=== PATIENT | male | born 1940 | race Caucasian/White ===

== ENCOUNTER 2019-02-25 22:14 | Emergency (ER) | payer MEDICARE, OTHER ==
[2019-02-25 22:24] VITALS: RESP 18
--- NOTE | 2019-02-25 23:17 | CT ---
EXAMINATION TYPE: CT brain cspine wo con DATE OF EXAM: 02/25/2019 COMPARISON: Cervical spine CT scan 05/22/2013 HISTORY: Fall, pain CT DLP: 1454.8 mGycm Automated exposure control for dose reduction was used. There is cerebral cortical atrophy. There is no mass effect nor midline shift. There is no sign of in tracranial hemorrhage. Calvarium is intact. There is ethmoid sinus mucosal thickening. There is straightening of the cervical spine. There is old anterior fusion surgery at C3-4. There is mild multilevel hypertrophic facet arthropathy. There is moderate narrowing at C5-6 and C6-7 disc spa sukhdeep with spurring of the endplates. Skull base is intact. IMPRESSION: Cerebral atrophy. No acute intracranial abnormality. Spondylotic changes in the cervical spine. Previous surgery. No fracture. There is improvement in spi nal stenosis at C3-C4 compared to old exam.
--- NOTE | 2019-02-25 23:49 | ED ---
Fall HPI - General Chief Complaint: Fall Stated Complaint: Fall Time Seen by Provider: 02/25/19 22:24 Source: patient, EMS Mode of arrival: EMS - History of Present Illness Initial Comments: Michel is a 78-year-old gentleman with past medical history documented below presents the ER today for evaluation of right-sided head and neck pain after an apparently unwitnessed fall from an electric scooter or wheelchair. Patient states that he was shopping when he fell out of the electric wheelchair he fell to the right striking the right side of his head doesn't believe he had any loss of consciousness. - Related Data Allergies Allergy/AdvReac Type Severity Reaction Status Date / Time No Known Allergies Allergy Verified 02/25/19 22:24 Review of Systems ROS Statement: Those systems with pertinent positive or pertinent negative responses have been documented in the HPI. ROS Other: All systems not noted in ROS Statement are negative. Past Medical History Past Medical History: CVA/TIA History of Any Multi-Drug Resistant Organisms: None Reported Past Surgical History: No Surgical Hx Reported Past Psychological History: No Psychological Hx Reported Smoking Status: Current every day smoker Past Alcohol Use History: None Reported Past Drug Use History: None Reported General Exam - General Exam Comments Initial Comments: Physical Exam GENERAL: Patient is well-developed and well-nourished. Unkempt appearance Stronger odor of tobacco smoke HENT: Normocephalic, Atraumatic - no obvious trauma TMs normal bilaterally no hemotympanum No matthew signs, no raccoon eyes EYES: PERRL, EOMI PULMONARY: Unlabored respirations. No audible rales rhonchi or wheezing was noted. CARDIOVASCULAR: There is a regular rate and rhythm without any murmurs gallops or rubs. ABDOMEN: Soft and nontender with normal bowel sounds. SKIN: Skin is clear with no lesions or rashes and otherwise unremarkable. : Deferred NEUROLOGIC: Patient is alert and oriented x3. Moving all extremities spontaneously MUSCULOSKELETAL: Normal extremities with adequate strength and full range of motion. No lower extremity swelling or edema. No calf tenderness. No midline cervical spine tenderness PSYCHIATRIC: Normal psychiatric evaluation. Limitations: no limitations Course Vital Signs 02/25/19 02/26/19 22:21 00:00 Temperature 97.8 F 98.0 F Pulse Rate 93 79 Respiratory 18 18 Rate Blood Pressure 127/72 135/79 O2 Sat by Pulse 97 94 L Oximetry Medical Decision Making - Medical Decision Making The patient was seen and evaluated upon arrival from emergency department. Patient had a fall from sitting position on an electric wheelchair landing on a hard floor no loss of consciousness. Complains of pain in the right side of his head. Patient has a history of stroke in the past with right-sided deficits. Not acutely worsen after the fall. Physical exam is unremarkable there is no obvious traumatic injury. Computed tomography scan of the brain and C-spine were obtained and resulted with no acute injuries in fact there is improvement in the final stenosis noted on previous CT scans. These results were discussed with patient, cervical collar was removed. Patient reported feeling more comfortable once cervical collar was removed. Patient comfortable with plan for discharge home and continue outpatient follow-up with his primary care physician. Disposition Clinical Impression: Fall Disposition: HOME SELF-CARE Condition: Stable Instructions (If sedation given, give patient instructions): Fall Prevention (ED) Is patient prescribed a controlled substance at d/c from ED?: No Referrals: Alvaro Donnelly MD [Primary Care Provider] - 1-2 days
[2019-02-26 00:04] VITALS: BP 135/79; PULSE 79; TEMP 98
== END 2019-02-26 00:04 | disposition home or self-care (01) ==
LOC: EC 22:14
DX: S09.90XA Unspecified injury of head, initial encounter (principal); M54.2 Cervicalgia; M48.02 Spinal stenosis, cervical region; F17.200 Nicotine dependence, unspecified, uncomplicated; Z86.73 Personal history of transient ischemic attack (TIA), and cerebral infarction without residual deficits; V00.811A Fall from moving wheelchair (powered), initial encounter; Y93.89 Activity, other specified; Y92.512 Supermarket, store or market as the place of occurrence of the external cause
CPT/HCPCS: 70450; 72125; 99284

== ENCOUNTER 2022-12-19 07:11 | Inpatient (IN) | payer MEDICARE, OTHER ==
[2022-12-19] MEDS ORDERED: SODIUM CHLORIDE 0.9% 500 ML 500 ML IV STA (07:41)
[2022-12-19] MEDS ORDERED: IPRATROPIUM 0.5 MG/2.5 ML NEBU INHALATION STA (07:43)
[2022-12-19] MEDS ORDERED: ALBUTEROL NEBULIZED 2.5 MG/3 ML INHALATION STA (07:43)
[2022-12-19] MEDS ORDERED: methylPREDNISolone SOD SUCCI 125 MG/2 ML VIAL IV STA (07:43)
--- NOTE | 2022-12-19 07:46 | ED ---
General Adult HPI - General Chief complaint: Shortness of Breath Stated complaint: weakness Time Seen by Provider: 12/19/22 07:25 Source: patient, EMS, RN notes reviewed, old records reviewed Mode of arrival: EMS Limitations: no limitations - History of Present Illness Initial comments: This is an 82-year-old male who presents emergency Department baseline of alert and oriented times one. Patient comes in because they found him the oxygenating down into the 30s according to the staff at the [facility]. Patient is unable to give any history. They placed oxygen on the patient he was brought up into the 80s but did not improve from there. I have no other history at this time because no caregiver or family came with him. - Related Data Home Medications Medication Instructions Recorded Confirmed Acetaminophen Tab [Tylenol] 650 mg PO Q6H PRN 12/19/22 12/19/22 Atorvastatin [Lipitor] 40 mg PO HS 12/19/22 12/19/22 Finasteride [Proscar] 5 mg PO DAILY 12/19/22 12/19/22 Ipratropium-Albuterol Nebulize 3 ml INHALATION RT-Q6H PRN 12/19/22 12/19/22 [Duoneb 0.5 mg-3 mg/3 ml Soln] Metoprolol Tartrate [Lopressor] 25 mg PO BID 12/19/22 12/19/22 Multivitamins, Thera [Multivitamin 1 tab PO DAILY 12/19/22 12/19/22 (formulary)] amLODIPine [Norvasc] 5 mg PO DAILY 12/19/22 12/19/22 lisinopriL [Prinivil] 10 mg PO DAILY 12/19/22 12/19/22 Allergies Allergy/AdvReac Type Severity Reaction Status Date / Time No Known Allergies Allergy Verified 02/25/19 22:24 Review of Systems ROS Statement: Those systems with pertinent positive or pertinent negative responses have been documented in the HPI. ROS Other: All systems not noted in ROS Statement are negative. Past Medical History Past Medical History: Atrial Fibrillation, COPD, CVA/TIA, Hyperlipidemia, Hypertension Additional Past Medical History / Comment(s): CKD History of Any Multi-Drug Resistant Organisms: None Reported Past Surgical History: No Surgical Hx Reported Past Psychological History: No Psychological Hx Reported Smoking Status: Unknown if ever smoked Past Alcohol Use History: None Reported Past Drug Use History: None Reported General Exam - General Exam Comments Initial Comments: GENERAL: Patient is well-developed and well-nourished. Patient is nontoxic and well- hydrated and is in moderate distress. ENT: Neck is soft and supple. No significant lymphadenopathy is noted. Oropharynx is clear. Moist mucous membranes. Neck has full range of motion without eliciting any pain. EYES: The sclera were anicteric and conjunctiva were pink and moist. Extraocular movements were intact and pupils were equal round and reactive to light. Eyelids were unremarkable. PULMONARY: Diminished breath sounds throughout and patient is very tachypneic CARDIOVASCULAR: There is a regular rate and rhythm without any murmurs gallops or rubs. ABDOMEN: Soft and nontender with normal bowel sounds. SKIN: Skin is clear with no lesions or rashes and otherwise unremarkable. NEUROLOGIC: Patient is alert and oriented 1. Cranial nerves II through XII are grossly intact. Motor and sensory are also intact. Normal speech, volume and content. Symmetrical smile. MUSCULOSKELETAL: Normal extremities with adequate strength and full range of motion. No lower extremity swelling or edema. No calf tenderness. LYMPHATICS: No significant lymphadenopathy is noted PSYCHIATRIC: Normal psychiatric evaluation. Limitations: no limitations Course Vital Signs 12/19/22 12/19/22 12/19/22 07:18 07:26 07:47 Temperature 97.0 F L Pulse Rate 108 H Respiratory 30 H 30 H Rate Blood Pressure 123/76 O2 Sat by Pulse 77 L 88 L Oximetry Fraction of 100 Inspired Oxygen (FIO2) 12/19/22 12/19/22 12/19/22 07:59 08:15 08:16 Temperature Pulse Rate 138 H 129 H 125 H Respiratory 41 H 22 Rate Blood Pressure O2 Sat by Pulse 96 Oximetry Fraction of Inspired Oxygen (FIO2) 12/19/22 12/19/22 12/19/22 09:57 10:54 11:11 Temperature Pulse Rate 116 H 121 H Respiratory 24 30 H Rate Blood Pressure 105/71 117/71 O2 Sat by Pulse 93 L 92 L Oximetry Fraction of 100 Inspired Oxygen (FIO2) 12/19/22 12/19/22 12/19/22 11:47 12:52 13:18 Temperature 100.5 F H Pulse Rate 149 H 113 H 98 Respiratory 20 30 H 30 H Rate Blood Pressure 110/71 93/56 92/61 O2 Sat by Pulse 96 95 93 L Oximetry Fraction of Inspired Oxygen (FIO2) Procedures - Chest Tube Insertion Consent Obtained: emergent situation Side of Procedure: right Indication: Pneumothorax Placed on monitor/pulse oximetry: Yes Site Prep: Chloroprep Local Anesthesia: Lidocaine 1% Insertion Site: 5th Intercostal Space, Midaxillary Scalpel: #10 Open into Pleural Space Using: Trocar Tube Size (English): Other (24) Returns: Air Sutured in Place: Yes Type of Suture: Nylon Dressing Applied: Petroleum Gauze Attached to Suction: Yes Type of Suction: Pleuravac Patient Tolerated Procedure: well Complications: Pain Medical Decision Making - Medical Decision Making EKG shows sinus tachycardia at 108 bpm OK interval is 211 QRSs 106 QT interval 335 QTC is 398. Patient's EKG shows no ST segment elevation or depression. Patient's heart rate accelerated so repeat EKG was done. I interpreted the EKG. EKG shows a sinus rhythm at 151 bpm OK interval 240 QRS is under 5 Q-T intervals 321 QTC is 427 per patient's EKG shows question for atrial flutter. Was pt. sent in by a medical professional or institution ([facility]all[facility], [employer], urgent care, hospital, or [facility]...) When possible be specific @ -Patient was sent in by the [facility] Did you speak to anyone other than the patient for history (EMS, parent, family, police, friend...)? What history was obtained from this source @ -No Did you review nursing and triage notes (agree or disagree)? Why? @ -I reviewed and agree with nursing and triage notes Were old charts reviewed (outside hosp., previous admission, EMS record, old EKG, old radiological studies, urgent care reports/EKG's, [facility] records)? Report findings @ -I reviewed prior charts prior laboratory or radiological studies Differential Diagnosis (chest pain, altered mental status, abdominal pain women, abdominal pain men, vaginal bleeding, weakness, fever, dyspnea, syncope, headache, dizziness, GI bleed, back pain, seizure, CVA, palpatations, mental health, musculoskeletal)? @ -Differential Dyspnea: Coronary syndrome, arrhythmia, tamponade, asthma, COPD, pulmonary embolism, pneumonia, pneumothorax, pulmonary effusion, anaphylaxis, diabetic ketoacidosis, flailed chest, pulmonary contusion, diaphragmatic rupture, anemia, neuromuscular, this is not meant to be an all-inclusive list. EKG interpreted by me (3pts min.). @ -As above X-rays interpreted by me (1pt min.). @ -Chest x-ray shows a right-sided pneumonia. Repeat x-ray of the chest shows pneumothorax. A repeat after the chest tube shows better inflation of the lung. CT interpreted by me (1pt min.). @ -Computed tomography scan shows a right-sided pneumothorax. Also showed a PE on the right U/S interpreted by me (1pt. min.). @ -None done What testing was considered but not performed or refused? (CT, X-rays, U/S, labs)? Why? @ -None What meds were considered but not given or refused? Why? @ -None Did you discuss the management of the patient with other professionals (professionals i.e. , PA, [employer], lab, RT, psych nurse, social work manager, visual designer, teacher, licensed loan officer, case filler)? Give summary @ -I spoke with Dr. Donnelly he agreed to admit the patient. I spoke with Dr. Segovia and he accepted the patient to the ICU and came to the emergency department Was smoking cessation discussed for >3mins.? @ -No Was critical care preformed (if so, how long)? @ -35 minutes Were there social determinants of health that impacted care today? How? (Homelessness, low income, unemployed, alcoholism, drug addiction, transportation, low edu. Level, literacy, decrease access to med. care, penitentiary, rehab)? @ -No Was there de-escalation of care discussed even if they declined (Discuss DNR or withdrawal of care, Hospice)? DNR status @ -No What co-morbidities impacted this encounter? (DM, HTN, Smoking, COPD, CAD, Cancer, CVA, ARF, Chemo, Hep., AIDS, mental health diagnosis, sleep apnea, morbid obesity)? @ -COPD, dementia Was patient admitted / discharged? Hospital course, mention meds given and route, prescriptions, significant lab abnormalities, going to OR and other pertinent info. @ -Patient was seen initially and it was noted that he had pneumonia on the x- ray patient was started on antibiotics. Shortly thereafter he started decompensated little heart rate went up so CT was done and it showed a pneumothorax. Chest tube was placed a repeat chest x-ray showed good placement of the tube and partial reinflation of the lung. I spoke with Dr. Cox who accepted the patient and I spoke with Dr. Segovia also accepted the patient to the ICU. I wrote admitting orders. CT also showed a PE so patient will be placed on heparin Undiagnosed new problem with uncertain prognosis? @ -No Drug Therapy requiring intensive monitoring for toxicity (Heparin, Nitro, Insulin, Cardizem)? @ -No Were any procedures done? @ -No Diagnosis/symptom? @ -Pneumonia Acute, or Chronic, or Acute on Chronic? @ -Acute Uncomplicated (without systemic symptoms) or Complicated (systemic symptoms)? @ -Complicated Side effects of treatment? @ -No Exacerbation, Progression, or Severe Exacerbation? @ -No Poses a threat to life or bodily function? How? (Chest pain, [place], [place], pneumonia, PE, COPD, DKA, ARF, appy, cholecystitis, CVA, Diverticulitis, Homicidal, Suicidal, threat to staff... and all critical care pts) @ -Chest is completely to sepsis and end organ dysfunction Diagnosis/symptom? @ -Pneumothorax Acute, or Chronic, or Acute on Chronic? @ -Acute Uncomplicated (without systemic symptoms) or Complicated (systemic symptoms)? @ -Complicated Side effects of treatment? @ -none Exacerbation, Progression, or Severe Exacerbation] @ -no Poses a threat to life or bodily function? @ -no Diagnosis/symptom? @ -Pulmonary embolism Acute, or Chronic, or Acute on Chronic? @ -Acute Uncomplicated (without systemic symptoms) or Complicated (systemic symptoms)? @ -Complicated Side effects of treatment? @ -none Exacerbation, Progression, or Severe Exacerbation] @ -no Poses a threat to life or bodily function? @ -Yes this could lead to severe hypoxia and - Lab Data Result diagrams: 12/19/22 07:54 12/19/22 10:30 Lab Results 12/19/22 12/19/22 12/19/22 Range/Units 07:54 07:54 07:54 WBC 20.1 H (3.8-10.6) k/uL RBC 5.16 (4.30-5.90) m/uL Hgb 15.5 (13.0-17.5) gm/dL Hct 47.9 (39.0-53.0) % MCV 92.8 (80.0-100.0) fL MCH 30.0 (25.0-35.0) pg MCHC 32.3 (31.0-37.0) g/dL RDW 13.7 (11.5-15.5) % Plt Count 218 (150-450) k/uL MPV 9.9 Neutrophils % 90 % Lymphocytes % 5 % Monocytes % 4 % Eosinophils % 0 % Basophils % 0 % Neutrophils # 18.2 H (1.3-7.7) k/uL Lymphocytes # 0.9 L (1.0-4.8) k/uL Monocytes # 0.8 (0-1.0) k/uL Eosinophils # 0.1 (0-0.7) k/uL Basophils # 0.1 (0-0.2) k/uL Hypochromasia Slight PT 11.6 (10.0-12.5) sec INR 1.1 (<1.2) APTT 23.8 (22.0-30.0) sec D-Dimer 1.29 H (<0.60) mg/L FEU Sample Site ABG pH (7.35-7.45) ABG pCO2 (35-45) mmHg ABG pO2 (83-108) mmHg ABG HCO3 (21-25) mmol/L ABG Total CO2 (19-24) mmol/L ABG O2 Saturation (94-97) % ABG Base Excess mmol/L Baljeet Test VBG pH (7.31-7.41) VBG pCO2 (37-51) mmHg VBG HCO3 (24-28) mmol/L FiO2 % Sodium Cancelled Potassium Cancelled Chloride Cancelled Carbon Dioxide Cancelled Anion Gap Cancelled BUN Cancelled Creatinine Cancelled Est GFR (CKD-EPI) Cancelled Est GFR (CKD-EPI)AfAm Cancelled Est GFR (CKD-EPI)NonAf Cancelled Glucose Cancelled Plasma Lactic Acid Jhon (0.7-2.0) mmol/L Calcium Cancelled Magnesium Cancelled Total Bilirubin Cancelled AST Cancelled ALT Cancelled Alkaline Phosphatase Cancelled Troponin I (0.000-0.034) ng/mL NT-Pro-B Natriuret Pep 528 pg/mL Total Protein Cancelled Albumin Cancelled Influenza Type A (PCR) (Not Detectd) Influenza Type B (PCR) (Not Detectd) RSV (PCR) (Not Detectd) SARS-CoV-2 (PCR) (Not Detectd) 12/19/22 12/19/22 12/19/22 Range/Units 07:54 07:54 08:00 WBC (3.8-10.6) k/uL RBC (4.30-5.90) m/uL Hgb (13.0-17.5) gm/dL Hct (39.0-53.0) % MCV (80.0-100.0) fL MCH (25.0-35.0) pg MCHC (31.0-37.0) g/dL RDW (11.5-15.5) % Plt Count (150-450) k/uL MPV Neutrophils % % Lymphocytes % % Monocytes % % Eosinophils % % Basophils % % Neutrophils # (1.3-7.7) k/uL Lymphocytes # (1.0-4.8) k/uL Monocytes # (0-1.0) k/uL Eosinophils # (0-0.7) k/uL Basophils # (0-0.2) k/uL Hypochromasia PT (10.0-12.5) sec INR (<1.2) APTT (22.0-30.0) sec D-Dimer (<0.60) mg/L FEU Sample Site ABG pH (7.35-7.45) ABG pCO2 (35-45) mmHg ABG pO2 (83-108) mmHg ABG HCO3 (21-25) mmol/L ABG Total CO2 (19-24) mmol/L ABG O2 Saturation (94-97) % ABG Base Excess mmol/L Baljeet Test VBG pH 7.26 L (7.31-7.41) VBG pCO2 66 H (37-51) mmHg VBG HCO3 30 H (24-28) mmol/L FiO2 % Sodium Potassium Chloride Carbon Dioxide Anion Gap BUN Creatinine Est GFR (CKD-EPI) Est GFR (CKD-EPI)AfAm Est GFR (CKD-EPI)NonAf Glucose Plasma Lactic Acid Jhon 1.7 (0.7-2.0) mmol/L Calcium Magnesium Total Bilirubin AST ALT Alkaline Phosphatase Troponin I 0.012 (0.000-0.034) ng/mL NT-Pro-B Natriuret Pep pg/mL Total Protein Albumin Influenza Type A (PCR) (Not Detectd) Influenza Type B (PCR) (Not Detectd) RSV (PCR) (Not Detectd) SARS-CoV-2 (PCR) (Not Detectd) 12/19/22 12/19/22 12/19/22 Range/Units 08:01 10:30 14:13 WBC (3.8-10.6) k/uL RBC (4.30-5.90) m/uL Hgb (13.0-17.5) gm/dL Hct (39.0-53.0) % MCV (80.0-100.0) fL MCH (25.0-35.0) pg MCHC (31.0-37.0) g/dL RDW (11.5-15.5) % Plt Count (150-450) k/uL MPV Neutrophils % % Lymphocytes % % Monocytes % % Eosinophils % % Basophils % % Neutrophils # (1.3-7.7) k/uL Lymphocytes # (1.0-4.8) k/uL Monocytes # (0-1.0) k/uL Eosinophils # (0-0.7) k/uL Basophils # (0-0.2) k/uL Hypochromasia PT (10.0-12.5) sec INR (<1.2) APTT (22.0-30.0) sec D-Dimer (<0.60) mg/L FEU Sample Site Left Radial ABG pH 7.24 L (7.35-7.45) ABG pCO2 64 H (35-45) mmHg ABG pO2 87 (83-108) mmHg ABG HCO3 28 H (21-25) mmol/L ABG Total CO2 30 H (19-24) mmol/L ABG O2 Saturation 95.6 (94-97) % ABG Base Excess 0.2 mmol/L Baljeet Test Yes VBG pH (7.31-7.41) VBG pCO2 (37-51) mmHg VBG HCO3 (24-28) mmol/L FiO2 100 % Sodium 143 Potassium 4.0 Chloride 104 Carbon Dioxide 24 Anion Gap 15 BUN 13 Creatinine 0.64 L Est GFR (CKD-EPI) Est GFR (CKD-EPI)AfAm >90 Est GFR (CKD-EPI)NonAf >90 Glucose 146 H Plasma Lactic Acid Jhon (0.7-2.0) mmol/L Calcium 8.8 Magnesium 2.1 Total Bilirubin 1.3 AST 24 ALT 20 Alkaline Phosphatase 106 Troponin I (0.000-0.034) ng/mL NT-Pro-B Natriuret Pep pg/mL Total Protein 7.0 Albumin 3.7 Influenza Type A (PCR) Not Detected (Not Detectd) Influenza Type B (PCR) Not Detected (Not Detectd) RSV (PCR) Not Detected (Not Detectd) SARS-CoV-2 (PCR) Not Detected (Not Detectd) Critical Care Time Critical Care Time: Yes Total Critical Care Time: 35 Disposition Clinical Impression: Pneumonia, Pulmonary embolism, Pneumothorax Disposition: ADMITTED IP TO THIS HOSP Referrals: Alvaro Donnelly MD [Primary Care Provider] - 1-2 days Time of Disposition: 14:49
--- NOTE | 2022-12-19 08:18 | XR ---
EXAM: XR chest 1V portable CLINICAL INDICATION:Male, 82 years old with history of SOB, Low O2; [facility] COMPARISON: Outside chest x-ray 05/22/2013 TECHNIQUE: Chest single view. FINDINGS: Lines/tubes/devices: EKG leads and other extrinsic densities over the chest. Cardiomediastinum: Cardiac silhouette appears upper normal in size. Tortuous aorta. Unremarkable mediastinal silhouette. Vasculature: No increased pulmonary vasculature. Lungs/pleura: Hyperinflated lungs with interstitial coarsening suggesting background of COPD. Foci of parenchymal c hange suggesting chronic/senescent changes, most evident in the lung apices. Patchy opacities suggest ing airspace disease in the right mid to lower lung zone. Small pleural effusions versus pleural thic kening. Bones/soft tissues: Bony thorax appears grossly intact with degenerative changes of the spine and shoulders noted. Region al soft tissues appear unremarkable. IMPRESSION: 1. Background COPD changes. 2. Opacities in the right mid to lower lung, likely pneumonia. Recommend correlation and follow-up t o resolution.
[2022-12-19 08:33] LABS: Basophils # (A) 0.1 k/uL (0-0.2); Basophils % (A) 0 %; Eosinophils # (A) 0.1 k/uL (0-0.7); Eosinophils % (A) 0 %; HCT 47.9 % (39.0-53.0); HGB 15.5 gm/dL (13.0-17.5); Hypochromasia Slight; Lymphocytes # (A) 0.9 k/uL (1.0-4.8); Lymphocytes % (A) 5 %; MCHC 32.3 g/dL (31.0-37.0); MCV 92.8 fL (80.0-100.0); Mean Platelet Volume 9.9; Monocytes # (A) 0.8 k/uL (0-1.0); Monocytes % (A) 4 %; Neutrophils # (A) 18.2 k/uL (1.3-7.7); Neutrophils % (A) 90 %; Platelet Count 218 k/uL (150-450); RBC 5.16 m/uL (4.30-5.90); RDW 13.7 % (11.5-15.5); WBC 20.1 k/uL (3.8-10.6)
[2022-12-19 08:55] LABS: INR 1.1 (<1.2); Partial Thromboplastin Time 23.8 sec (22.0-30.0); Prothrombin Time 11.6 sec (10.0-12.5)
[2022-12-19 09:26] LABS: VBG PH 7.26 (7.31-7.41)
[2022-12-19] MEDS ORDERED: LORazepam 2 MG/ML INJ IV STA (09:28)
[2022-12-19] MEDS ORDERED: cefTRIAXone IN SWFI 1,000 MG/10 ML SYRINGE IVP STA (09:28)
[2022-12-19 11:19] LABS: ALT 20 U/L (4-49); AST 24 U/L (17-59); African American GFR (CKD) >90 (>60 ml/min/1.73 sqM); Albumin 3.7 g/dL (3.5-5.0); Alkaline Phosphatase 106 U/L (38-126); Anion Gap 15 mmol/L; Blood Urea Nitrogen 13 mg/dL (9-20); Calcium 8.8 mg/dL (8.4-10.2); Carbon Dioxide 24 mmol/L (22-30); Chloride 104 mmol/L (98-107); Glucose 146 mg/dL (74-99); Magnesium 2.1 mg/dL (1.6-2.3); Non-African American GFR(CKD) >90 (>60 ml/min/1.73 sqM); Sodium 143 mmol/L (137-145); Total Bilirubin 1.3 mg/dL (0.2-1.3)
[2022-12-19] MEDS ORDERED: ACETAMINOPHEN IV (For NPO) 1,000 MG in EMPTY BAG 1 BAG IVPB STA (12:02)
--- NOTE | 2022-12-19 12:53 | CT ---
EXAMINATION TYPE: CT chest angio for PE CT DLP: 345.5 mGycm, Automated exposure control for dose reduction was used. DATE OF EXAM: 12/19/2022 12:26 PM COMPARISON: Chest radiograph from same day.. CLINICAL INDICATION:Male, 82 years old with history of Difficulty breathing elevated d-dimer; Difficu lty breathing TECHNIQUE/CONTRAST: CTA scan of the thorax is performed without and with IV Contrast, patient injected with 100 ml mL of Isovue 370, MIP images are created and reviewed these are created on a separate workstation.. FINDINGS: Pulmonary Artery: There possible filling defect present on a couple slices. Evaluation limited by mot ion including series 411 image 90 and image 87. The pulmonary trunk is within normal limits for size. Lungs/Pleura: Separation of the lung parenchyma on the chest wall with thin septations in some areas possibly representing bullous emphysema. There is no clear pneumothorax on the right in the inferior medial aspect near the diaphragm.. There is right lower lung consolidation with bronchovascular crowd ing. Airway: Right lower lung opacified airways Heart: Heart is within normal limits for size. Subcutaneous gas tracking throughout the mediastinum i ncluding suspected pericardium. Vasculature: No evidence of aortic aneurysm. Scattered atherosclerosis of the vasculature. Mediastinum: No gross evidence of adenopathy. There is subcutaneous emphysema throughout the mediasti num tracking up into the neck. Musculoskeletal: No acute osseous abnormalities Soft Tissues: Subjacent emphysema in the soft tissues of the neck. Lower neck: No significant findings. Upper Abdomen: No significant findings. IMPRESSION: 1. Limited evaluation for pulmonary embolus due to motion, possible filling defects within the right lower lobe pulmonary arterial vasculature concerning compatible with emboli. 2. Bilateral appearance of pneumothoraces however there is thin septations extending through the expe cted location of the pleural space bilaterally. This finding suggests these could possibly represent underlying bullous emphysema. There is definitely medial inferior right lung pneumothorax. There is a ssociated subcutaneous emphysema in the neck and pneumomediastinum/pneumopericardium. 3. Right lower lung consolidation and bronchial vascular crowding likely secondary to bullous emphyse ma changes and mucous plugging and atelectasis. Superimposed infection not entirely excluded. Findings communicated to Dr. Kishan Theodore MD on 12/19/2022 12:[address] Aidan Guevraa.
--- NOTE | 2022-12-19 13:29 | XR ---
EXAMINATION TYPE: XR chest 1V portable DATE OF EXAM: 12/19/2022 1:14 PM COMPARISON: CTA chest the same date. TECHNIQUE: XR chest 1V portable Portable AP radiograph of the chest. CLINICAL INDICATION:Male, 82 years old with history of Short of breath; FINDINGS: Lungs/Pleura: Moderate size right pneumothorax with known trace left pneumothorax poorly visualized. Atelectasis of the right lower lobe. Left basilar patchy airspace opacities in right upper lung retic ular opacities demonstrated. Hyperinflation compatible with COPD. Pulmonary vascularity: Unremarkable. Heart/mediastinum: Mediastinum and heart are prominent size. Pneumomediastinum redemonstrated corresp onding to CT. Musculoskeletal: No acute osseous pathology. Other findings: Right neck subcutaneous emphysema identified corresponding to CT. IMPRESSION: 1. Moderate right pneumothorax with known small left pneumothorax on CTA chest not well visualized. Atelectasis of the right lower lobe. Left basilar patchy airspace opacity with right upper lung retic ular opacities. 2. Pneumomediastinum. 3. Right neck subcutaneous emphysema.
[2022-12-19] MEDS ORDERED: MIDAZOLAM 1 MG/ML 5 ML VIAL IV STA (13:36)
[2022-12-19] MEDS ORDERED: LIDOCAINE 1% INJ 10MG/ML (20 ML MDV) SQ ONE (13:37)
[2022-12-19] MEDS ORDERED: fentaNYL (PF) 50 MCG/ML 2 ML AMP IVP PRN (13:37)
[2022-12-19 14:24] LABS: ABG Base Excess 0.2 mmol/L; ABG HCO3 28 mmol/L (21-25); ABG Oxygen Saturation 95.6 % (94-97); ABG PCO2 64 mmHg (35-45); ABG PH 7.24 (7.35-7.45); ABG PO2 87 mmHg (83-108); ABG TCO2 30 mmol/L (19-24); Allen Test Performed? Yes
[2022-12-19] MEDS ORDERED: HEPARIN SODIUM 1,000 UN/ML (10ML VL) IV ONE (14:42)
--- NOTE | 2022-12-19 14:49 | XR ---
EXAMINATION TYPE: XR chest 1V portable DATE OF EXAM: 12/19/2022 COMPARISON: 12/19/2022 HISTORY: Tube placement TECHNIQUE: Single frontal view of the chest is obtained. FINDINGS: There is been interval insertion of a right-sided chest tube tip of which projects over the right mid lung. There is a loculated pneumothorax in the right lung base laterally which has decreased mildly f ollowing tube insertion and there is marked atelectasis of the right lower lobe. There is a persistent large retrocardiac opacity which is stable. There is marked interstitial promin ence in the upper lobes which is stable. There is stable subcutaneous emphysema in the right neck sof t tissues. IMPRESSION: 1. Interval insertion of a right-sided chest tube described. 2. Small loculated pneumothorax right lung base laterally which appears slightly smaller in the inter ximena. 3. Marked stable atelectasis of the right lower lobe. 4. Stable diffuse interstitial changes and large retrocardiac opacity.
[2022-12-19] MEDS ORDERED: NALOXONE 0.4 MG/ML 1 ML VIAL IV PRN (14:50)
[2022-12-19] MEDS ORDERED: AZITHROMYCIN 500 MG in SODIUM CHLORIDE 0.9% 250 ML IVPB STA (14:51)
--- NOTE | 2022-12-19 15:02 | P.CNPUL ---
History of Present Illness Consult date: 12/19/22 Requesting physician: Kishan Theodore Reason for consult: other (Acute hypoxic and hypercapnic respiratory failure with spontaneous right-sided pneumothorax and right lower lobe pneumonia) Chief complaint: Shortness of breath and low O2 saturation. History of present illness: This is an 82-year-old white male with history of COPD, hypertension, patient is a senior living resident, sent to the ER today because of oxygenation went down to the 30s according to nursing staff. The patient himself is known to have dementia, could not get much information from the patient. Patient was placed on oxygen and sent to the ER. Upon arrival the patient was not doing well, he was placed on BiPAP. Initial chest x-ray showed no evidence of pneumothorax and it did show evidence of right lower lobe pneumonia. However his CT of the chest was done clearly showed evidence of right-sided pneumothorax, pneumomediastinum, subcutaneous emphysema extending to the anterior chest wall and to the neck area . Follow-up chest x-ray showed the same hence I was notified about this patient and I recommended immediate chest tube placement and this was done by the ER physician. Follow-up chest x-ray showed persistent pneumothorax in the right lower lobe area/with right lower lobe atelectasis and consolidation. Chest she was noted to be in the proper position and there was continuous air leak noted in the Pleur-evac which was applied to wall suction patient is now on a nonrebreather mask, follow-up ABG post tube insertion showed a pO2 of 87 pCO2 64 pH of 7.24 hence I recommended placing the patient back on BiPAP 12/6/100% FiO2. And I have recommended admitting the patient to the ICU. Again the patient is a very poor historian, and not much information could be obtained from the patient himself. Apparently the ER physician was trying to get hold of his legal guardian to address CODE STATUS, and he could not get hold of the legal guardian the meantime the patient remains full code. Other labs on this patient showed leukocytosis with the risk of 20.1 hemoglobin 15.5. D-dimer is a bit elevated and again the CT of the chest did show evidence of pulmonary embolism. Hence I will recommend anticoagulation therapy for this patient. Patient is already on heparin and he is on bronchodilators is also on Rocephin, however considering his clinical history, and mental status I would be more concerned about aspiration pneumonia and I will go ahead and transition his Zithromax and Rocephin to Zosyn. Review of Systems ROS unobtainable: due to mental status (Patient is an extremely poor historian, has underlying dementia which is profound.) Past Medical History Past Medical History: Atrial Fibrillation, COPD, CVA/TIA, Hyperlipidemia, Hypertension Additional Past Medical History / Comment(s): CKD History of Any Multi-Drug Resistant Organisms: None Reported Past Surgical History: No Surgical Hx Reported Past Psychological History: No Psychological Hx Reported Smoking Status: Unknown if ever smoked Past Alcohol Use History: None Reported Past Drug Use History: None Reported Medications and Allergies Home Medications Medication Instructions Recorded Confirmed Type Acetaminophen Tab [Tylenol] 650 mg PO Q6H PRN 12/19/22 12/19/22 History Atorvastatin [Lipitor] 40 mg PO HS 12/19/22 12/19/22 History Finasteride [Proscar] 5 mg PO DAILY 12/19/22 12/19/22 History Ipratropium-Albuterol Nebulize 3 ml INHALATION RT-Q6H PRN 12/19/22 12/19/22 History [Duoneb 0.5 mg-3 mg/3 ml Soln] Metoprolol Tartrate [Lopressor] 25 mg PO BID 12/19/22 12/19/22 History Multivitamins, Thera [Multivitamin 1 tab PO DAILY 12/19/22 12/19/22 History (formulary)] amLODIPine [Norvasc] 5 mg PO DAILY 12/19/22 12/19/22 History lisinopriL [Prinivil] 10 mg PO DAILY 12/19/22 12/19/22 History Allergies Allergy/AdvReac Type Severity Reaction Status Date / Time No Known Allergies Allergy Verified 02/25/19 22:24 Physical Exam Vitals: Vital Signs Temp Pulse Resp BP Pulse Ox FiO2 12/19/22 13:18 98 30 H 92/61 93 L 12/19/22 12:52 113 H 30 H 93/56 95 12/19/22 11:47 100.5 F H 149 H 20 110/71 96 12/19/22 11:11 100 12/19/22 10:54 121 H 30 H 117/71 92 L 12/19/22 09:57 116 H 24 105/71 93 L 12/19/22 08:16 125 H 22 96 12/19/22 08:15 129 H 12/19/22 07:59 138 H 41 H 12/19/22 07:47 100 12/19/22 07:26 30 H 88 L 12/19/22 07:18 97.0 F L 108 H 30 H 123/76 77 L Intake and Output 12/18/22 12/19/22 12/19/22 23:59 06:59 14:59 Other: Weight 72.575 kg Physical Exam: Revealed an 82-year-old white male in moderate respiratory distress on a nonrebreather mask Head: Atraumatic normocephalic HEENT:[Neck is supple.] [No neck masses.] [No thyromegaly.] [No JVD.] S ubcutaneous emphysema palpable in the upper chest wall area and in the neck area Chest: [Symmetrical chest expansion crackles and rhonchi noted bilaterally subcutaneous emphysema noted in the anterior chest wall area right-sided chest tube is noted connected to Pleur-evac and there is continuous air leak. Cardiac Exam: [Normal S1 and S2, no S3 gallop, no murmur.] Abdomen: [Soft, nontender, no megaly, no rebound, no guarding, normal bowel sounds.] Extremities: [No clubbing, no edema, no cyanosis.] Neurological Exam: Patient is awake, seems to be confused, does not follow any instructions. Psychiatric: Patient has flat affect and confused. Skin: No rashes. Results - Laboratory Findings CBC and BMP: 12/19/22 07:54 12/19/22 10:30 ABG ABG pH 7.24 (7.35-7.45) L 12/19/22 14:13 ABG pCO2 64 mmHg (35-45) H 12/19/22 14:13 ABG pO2 87 mmHg (83-108) 12/19/22 14:13 ABG O2 Saturation 95.6 % (94-97) 12/19/22 14:13 PT/INR, D-dimer PT 11.6 sec (10.0-12.5) 12/19/22 07:54 INR 1.1 (<1.2) 12/19/22 07:54 D-Dimer 1.29 mg/L FEU (<0.60) H 12/19/22 07:54 Abnormal lab findings: Abnormal Labs 12/19/22 12/19/22 12/19/22 07:54 07:54 08:00 WBC 20.1 H Neutrophils # 18.2 H Lymphocytes # 0.9 L D-Dimer 1.29 H ABG pH ABG pCO2 ABG HCO3 ABG Total CO2 VBG pH 7.26 L VBG pCO2 66 H VBG HCO3 30 H Creatinine Glucose 12/19/22 12/19/22 10:30 14:13 WBC Neutrophils # Lymphocytes # D-Dimer ABG pH 7.24 L ABG pCO2 64 H ABG HCO3 28 H ABG Total CO2 30 H VBG pH VBG pCO2 VBG HCO3 Creatinine 0.64 L Glucose 146 H - Diagnostic Findings Chest x-ray: image reviewed (As noted in HPI) CT scan - chest: image reviewed (As noted in HPI) Assessment and Plan Assessment: Impression: Acute hypoxic and hypercapnic respiratory failure, multifactorial: Acute right lower lobe pneumonia, strongly suspect aspiration pneumonia Acute pulmonary embolism with abnormal d-dimer and abnormal CT of the chest Acute exacerbation of COPD Acute spontaneous right-sided pneumothorax and pneumomediastinum History of underlying dementia benign essential hypertension Dyslipidemia Benign essential hypertension Paroxysmal atrial fibrillation History of underlying COPD Recommendation: Transition patient to BiPAP Continue chest tube to wall suction daily x-rays of the chest repeat ABG after an hour of being on BiPAP admit patient to ICU continue heparin Continue bronchodilators Continue Zosyn and discontinue Rocephin and Zithromax Resume home meds GI prophylaxis/Protonix Continue supportive care measures Address CODE STATUS with the legal guardian in the next 24 hours Overall prognosis is relatively guarded We will continue to follow Patient was seen in the ER, he is critically ill, and will need ICU admission Time with Patient: Greater than 30
[2022-12-19] MEDS: HEPARIN SOD,PORK IN 0.45% NACL 25,000 UNIT in 0.45% NACL 1 250ML.BAG IV SCH (15:25)
[2022-12-19] MEDS: PANTOPRAZOLE 40 MG/10 ML VIAL IVP SCH (15:27)
[2022-12-19] MEDS: PIPERACILLIN-TAZOBACTAM 3.375 GM in SODIUM CHLORIDE 0.9% 100 ML IVPB SCH ×2 (15:30→23:14)
[2022-12-19 17:28] LABS: Glucose,Whole Blood 210 mg/dL (70-110)
[2022-12-19] MEDS ORDERED: Phosphorus Replacement Protoco 1 EACH MISC MISCELLANE PRN (17:35)
[2022-12-19] MEDS ORDERED: Magnesium Replacement Protocol 1 EACH MISC MISCELLANE PRN (17:35)
[2022-12-19] MEDS ORDERED: Potassium Replacement Protocol 1 EACH MISC MISCELLANE PRN (17:35)
[2022-12-19 18:31] LABS: African American GFR (CKD) >90 (>60 ml/min/1.73 sqM); Anion Gap 11 mmol/L; Blood Urea Nitrogen 16 mg/dL (9-20); Calcium 8.3 mg/dL (8.4-10.2); Carbon Dioxide 21 mmol/L (22-30); Chloride 110 mmol/L (98-107); Glucose 207 mg/dL (74-99); Non-African American GFR(CKD) 88 (>60 ml/min/1.73 sqM); Sodium 142 mmol/L (137-145)
[2022-12-19 18:33] LABS: Appearance,Urine Cloudy (Clear); Bacteria,Urine Rare /hpf; Bilirubin,Urine Negative (Negative); Blood,Urine Trace (Negative); Color,Urine Yellow; Glucose,Urine (UA) Trace (Negative); Ketones,Urine 1+ (Negative); Leukocyte Esterase,Urine Negative (Negative); Mucus,Urine Few /hpf; Nitrite,Urine Negative (Negative); PH, Urine 5.5 (5.0-8.0); Protein,Urine 1+ (Negative); RBC,Urine 12 /hpf (0-5); Specific Gravity,Urine >1.050 (1.001-1.035); Squamous Epithelial Cell,Urine 1 /hpf (0-4); Urobilinogen,Urine <2.0 mg/dL (<2.0); WBC,Urine 13 /hpf (0-5)
[2022-12-19] MEDS ORDERED: SODIUM CHLORIDE 0.9% 500 ML 500 ML IV ONE (23:09)
[2022-12-19 23:57] LABS: Glucose,Whole Blood 210 mg/dL (70-110)
[2022-12-20 04:54] LABS: Basophils % (A) 0 %; Eosinophils % (A) 0 %; HCT 42.9 % (39.0-53.0); Hypochromasia Marked; Lymphocytes # (A) 0.6 k/uL (1.0-4.8); Lymphocytes % (A) 2 %; MCH 29.3 pg (25.0-35.0); MCHC 30.3 g/dL (31.0-37.0); MCV 96.7 fL (80.0-100.0); Mean Platelet Volume 10.1; Monocytes # (A) 0.8 k/uL (0-1.0); Monocytes % (A) 3 %; Neutrophils # (A) 24.2 k/uL (1.3-7.7); Neutrophils % (A) 94 %; Platelet Count 188 k/uL (150-450); RBC 4.43 m/uL (4.30-5.90); RDW 13.9 % (11.5-15.5); WBC 25.8 k/uL (3.8-10.6)
[2022-12-20] MEDS ORDERED: HEPARIN SODIUM 1,000 UN/ML (10ML VL) IV PRN (05:30)
[2022-12-20 05:33] LABS: African American GFR (CKD) >90 (>60 ml/min/1.73 sqM); Anion Gap 8 mmol/L; Blood Urea Nitrogen 22 mg/dL (9-20); Calcium 8.2 mg/dL (8.4-10.2); Carbon Dioxide 28 mmol/L (22-30); Chloride 109 mmol/L (98-107); Glucose 192 mg/dL (74-99); Magnesium 2.1 mg/dL (1.6-2.3); Non-African American GFR(CKD) 86 (>60 ml/min/1.73 sqM); Potassium 4.3 mmol/L (3.5-5.1); Sodium 145 mmol/L (137-145)
[2022-12-20 06:24] LABS: Glucose,Whole Blood 175 mg/dL (70-110)
[2022-12-20] MEDS: PIPERACILLIN-TAZOBACTAM 3.375 GM in SODIUM CHLORIDE 0.9% 100 ML IVPB SCH ×3 (07:49→23:58)
[2022-12-20] MEDS: PANTOPRAZOLE 40 MG/10 ML VIAL IVP SCH (07:49)
--- NOTE | 2022-12-20 08:49 | XR ---
EXAMINATION TYPE: XR chest 1V DATE OF EXAM: 12/20/2022 COMPARISON: 12/19/2022 HISTORY: Chest tube TECHNIQUE: Single frontal view of the chest is obtained. FINDINGS: There is interval reduction in the right-sided pneumothorax which now measures approximate ly 5-10%. Area of consolidation in the right upper lobe is new. Underlying COPD and pulmonary fibrosi s. Subcutaneous air is seen in the soft tissues of the right neck. Elevated left hemidiaphragm. Ectas ia of the aorta. Diffuse osteopenia. Arthropathy of the shoulders. IMPRESSION: 1. There is a proximally 5-10% right-sided pneumothorax with an area of adjacent pleural thickening o r fluid. 2. Interval development of an area of consolidation right upper lobe . Cannot exclude a small amount of pneumomediastinum.
[2022-12-20 11:17] LABS: Glucose,Whole Blood 150 mg/dL (70-110)
--- NOTE | 2022-12-20 11:33 | P.PN ---
Subjective Progress Note Date: 12/20/22 This is an 82-year-old white male with history of COPD, hypertension, patient is a long term resident, sent to the ER today because of oxygenation went down to the 30s according to nursing staff. The patient himself is known to have dementia, could not get much information from the patient. Patient was placed on oxygen and sent to the ER. Upon arrival the patient was not doing well, he was placed on BiPAP. Initial chest x-ray showed no evidence of pneumothorax and it did show evidence of right lower lobe pneumonia. However his CT of the chest was done clearly showed evidence of right-sided pneumothorax, pneumomediastinum, subcutaneous emphysema extending to the anterior chest wall and to the neck area. Follow-up chest x-ray showed the same hence I was notified about this patient and I recommended immediate chest tube placement and this was done by the ER physician. Follow-up chest x-ray showed persistent pneumothorax in the right lower lobe area/with right lower lobe atelectasis and consolidation. Chest she was noted to be in the proper position and there was continuous air leak noted in the Pleur-evac which was applied to wall suction patient is now on a nonrebreather mask, follow-up ABG post tube insertion showed a pO2 of 87 pCO2 64 pH of 7.24 hence I recommended placing the patient back on BiPAP 12/6/100% FiO2. And I have recommended admitting the patient to the ICU. Again the patient is a very poor historian, and not much information could be obtained from the patient himself. Apparently the ER physician was trying to get hold of his legal guardian to address CODE STATUS, and he could not get hold of the legal guardian the meantime the patient remains full code. Other labs on this patient showed leukocytosis with the risk of 20.1 hemoglobin 15.5. D-dimer is a bit elevated and again the CT of the chest did show evidence of pulmonary embolism. Hence I will recommend anticoagulation therapy for this patient. Patient is already on heparin and he is on bronchodilators is also on Rocephin, however considering his clinical history, and mental status I would be more concerned about aspiration pneumonia and I will go ahead and transition his Zithromax and Rocephin to Zosyn. The patient is seen today 12/20/2022 in follow-up in the intensive care unit. He is currently sitting up in bed. Awake and alert in no acute distress. He is maintaining O2 saturations in the 90s on 2 L nasal cannula. He had worn the BiPAP 12/6 and 35% FiO2 throughout the night. Follow-up chest x-ray reveals an approximate 5-10% right-sided pneumothorax with an adjacent air area of pleural thickening or fluid. Interval development of Pam Jessica consolidation in the right upper lobe. Small amount of pneumomediastinum. Chest tube remains in place. No leak noted. White count 26. Hemoglobin 13.0. Platelets 188. Sodium 145. Potassium 4.3. Bicarb 28. BUN 22. Creatinine 0.78. Glucose 192. He is continued on a heparin drip. Normal saline at KVO. Antibiotics in the form of Zosyn and azithromycin. Objective - Vital Signs Vital signs: Vital Signs Temp 97.9 F 12/20/22 08:00 Pulse 98 12/20/22 11:00 Resp 38 H 12/20/22 11:00 BP 102/59 12/20/22 11:00 Pulse Ox 91 L 12/20/22 11:00 FiO2 35 12/20/22 08:35 Intake & Output 12/19/22 12/20/22 12/20/22 18:59 06:59 18:59 Intake Total 360 272.773 150 Output Total 950 460 135 Balance -590 -187.227 15 Weight 72.575 kg 81.1 kg Intake: IV 10 120 10 Sodium Chloride 0.9% 500 10 120 10 ml 500 ml @ 999 mls/hr IV .Q31M STA Rx#:[id number] Intake, IV Titration 350 152.773 140 Amount Azithromycin 500 mg In 250 Sodium Chloride 0.9% 250 ml @ 250 mls/hr IVPB ONCE STA Rx#:[id number] Heparin Sod,Pork in 0.45% 152.773 NaCl 25,000 unit In 0.45 % NaCl 1 250ml.bag @ 18 UNITS/KG/HR 13.064 mls/hr IV .Q19H9M JAMEE Rx#: [id number] Piperacillin-Tazobactam 3 100 100 .375 gm In Sodium Chloride 0.9% 100 ml @ 25 mls/hr IVPB Q8HR JAMEE Rx# :[id number] Sodium Chloride 0.9% 500 40 ml 500 ml @ 999 mls/hr IV .Q31M ONE Rx#:[id number] Output: Chest Tube Drainage 160 Chest Tube Right 160 Urine 950 300 135 Uretheral (Brown) 400 Other: Voiding Method Indwelling Catheter Indwelling Catheter Indwelling Catheter - Exam GENERAL EXAM: Alert, disheveled 82-year-old male patient, on 2 L nasal cannula, fairly comfortable in no apparent distress. HEAD: Normocephalic. EYES: Normal reaction of pupils, equal size. NOSE: Clear with pink turbinates. THROAT: No erythema or exudates. NECK: No masses, no JVD. CHEST: No chest wall deformity. Right-sided chest tube to Pleur-evac and low continuous suction. No air leak noted. LUNGS: Equal air entry with crackles, few scattered rhonchi in the right lung. Diminished left lung base. CVS: S1 and S2 normal with no audible murmur, regular rhythm. ABDOMEN: No hepatosplenomegaly, normal bowel sounds, no guarding or rigidity. SPINE: No scoliosis or deformity SKIN: No rashes CENTRAL NERVOUS SYSTEM: No focal deficits, tone is normal in all 4 extremities. EXTREMITIES: There is no peripheral edema. No clubbing, no cyanosis. Peripheral pulses are intact. - Labs CBC & Chem 7: 12/20/22 03:49 12/20/22 03:49 Labs: Abnormal Lab Results - Last 24 Hours (Table) 12/19/22 12/19/22 12/19/22 Range/Units 10:30 14:13 17:27 WBC (3.8-10.6) k/uL MCHC (31.0-37.0) g/dL Neutrophils # (1.3-7.7) k/uL Lymphocytes # (1.0-4.8) k/uL APTT (22.0-30.0) sec ABG pH 7.24 L (7.35-7.45) ABG pCO2 64 H (35-45) mmHg ABG HCO3 28 H (21-25) mmol/L ABG Total CO2 30 H (19-24) mmol/L Chloride (98-107) mmol/L Carbon Dioxide (22-30) mmol/L BUN (9-20) mg/dL Creatinine 0.64 L (0.66-1.25) mg/dL Glucose 146 H (74-99) mg/dL POC Glucose (mg/dL) 210 H (70-110) mg/dL Calcium (8.4-10.2) mg/dL Ur Specific [place] (1.001-1.035) Urine Protein (Negative) Urine Glucose (UA) (Negative) Urine Ketones (Negative) Urine Blood (Negative) Urine RBC (0-5) /hpf Urine WBC (0-5) /hpf Urine Bacteria (None) /hpf Urine Mucus (None) /hpf 12/19/22 12/19/22 12/19/22 Range/Units 17:46 18:00 21:25 WBC (3.8-10.6) k/uL MCHC (31.0-37.0) g/dL Neutrophils # (1.3-7.7) k/uL Lymphocytes # (1.0-4.8) k/uL APTT 97.5 H (22.0-30.0) sec ABG pH (7.35-7.45) ABG pCO2 (35-45) mmHg ABG HCO3 (21-25) mmol/L ABG Total CO2 (19-24) mmol/L Chloride 110 H (98-107) mmol/L Carbon Dioxide 21 L (22-30) mmol/L BUN (9-20) mg/dL Creatinine (0.66-1.25) mg/dL Glucose 207 H (74-99) mg/dL POC Glucose (mg/dL) (70-110) mg/dL Calcium 8.3 L (8.4-10.2) mg/dL Ur Specific [place] >1.050 H (1.001-1.035) Urine Protein 1+ H (Negative) Urine Glucose (UA) Trace H (Negative) Urine Ketones 1+ H (Negative) Urine Blood Trace H (Negative) Urine RBC 12 H (0-5) /hpf Urine WBC 13 H (0-5) /hpf Urine Bacteria Rare H (None) /hpf Urine Mucus Few H (None) /hpf 12/19/22 12/20/22 12/20/22 Range/Units 23:56 03:49 03:49 WBC 25.8 H (3.8-10.6) k/uL MCHC 30.3 L (31.0-37.0) g/dL Neutrophils # 24.2 H (1.3-7.7) k/uL Lymphocytes # 0.6 L (1.0-4.8) k/uL APTT (22.0-30.0) sec ABG pH (7.35-7.45) ABG pCO2 (35-45) mmHg ABG HCO3 (21-25) mmol/L ABG Total CO2 (19-24) mmol/L Chloride 109 H (98-107) mmol/L Carbon Dioxide (22-30) mmol/L BUN 22 H (9-20) mg/dL Creatinine (0.66-1.25) mg/dL Glucose 192 H (74-99) mg/dL POC Glucose (mg/dL) 210 H (70-110) mg/dL Calcium 8.2 L (8.4-10.2) mg/dL Ur Specific [place] (1.001-1.035) Urine Protein (Negative) Urine Glucose (UA) (Negative) Urine Ketones (Negative) Urine Blood (Negative) Urine RBC (0-5) /hpf Urine WBC (0-5) /hpf Urine Bacteria (None) /hpf Urine Mucus (None) /hpf 12/20/22 12/20/22 12/20/22 Range/Units 03:49 06:22 11:15 WBC (3.8-10.6) k/uL MCHC (31.0-37.0) g/dL Neutrophils # (1.3-7.7) k/uL Lymphocytes # (1.0-4.8) k/uL APTT 42.5 H (22.0-30.0) sec ABG pH (7.35-7.45) ABG pCO2 (35-45) mmHg ABG HCO3 (21-25) mmol/L ABG Total CO2 (19-24) mmol/L Chloride (98-107) mmol/L Carbon Dioxide (22-30) mmol/L BUN (9-20) mg/dL Creatinine (0.66-1.25) mg/dL Glucose (74-99) mg/dL POC Glucose (mg/dL) 175 H 150 H (70-110) mg/dL Calcium (8.4-10.2) mg/dL Ur Specific [place] (1.001-1.035) Urine Protein (Negative) Urine Glucose (UA) (Negative) Urine Ketones (Negative) Urine Blood (Negative) Urine RBC (0-5) /hpf Urine WBC (0-5) /hpf Urine Bacteria (None) /hpf Urine Mucus (None) /hpf Assessment and Plan Assessment: Acute hypoxic and hypercapnic respiratory failure, multifactorial: Acute right lower lobe pneumonia, strongly suspect aspiration pneumonia Acute pulmonary embolism with abnormal d-dimer and abnormal CT of the chest Acute exacerbation of COPD Acute spontaneous right-sided pneumothorax and pneumomediastinum History of underlying dementia Benign essential hypertension Dyslipidemia Paroxysmal atrial fibrillation Plan: The patient was seen and evaluated Chest x-ray, labs and medications reviewed Right-sided chest tube remains to wall suction No leak appreciated Currently on 2 L nasal cannula Did utilize BiPAP last night Remains on a heparin drip Continued on Zosyn, azithromycin Procalcitonin pending We will continue to follow I have personally seen and examined the patient, performed the documentation and the assessment and plan as written. Number of minutes spent on the visit: 10.
[2022-12-20] MEDS ORDERED: AZITHROMYCIN 500 MG in SODIUM CHLORIDE 0.9% 250 ML IVPB SCH (12:00)
[2022-12-20] MEDS: HEPARIN SOD,PORK IN 0.45% NACL 25,000 UNIT in 0.45% NACL 1 250ML.BAG IV SCH ×2 (12:29→14:01)
[2022-12-20 13:18] VITALS: BMI 24.2
[2022-12-20] MEDS ORDERED: SODIUM CHLORIDE 0.9% 1,000 ML IV ONE (13:53)
[2022-12-20] MEDS ORDERED: METOPROLOL TARTRATE 25 MG TAB PO SCH (14:31)
[2022-12-20 17:50] LABS: Glucose,Whole Blood 117 mg/dL (70-110)
[2022-12-20] MEDS ORDERED: METOPROLOL TARTRATE 5 MG/5 ML VIAL IVP SCH (21:00)
--- NOTE | 2022-12-20 21:06 | XR ---
EXAMINATION TYPE: XR chest 1V portable DATE OF EXAM: 12/20/2022 COMPARISON: 12/20/2022 INDICATION: Chest tube verification TECHNIQUE: Single frontal view of the chest is obtained. FINDINGS: Mediastinum is somewhat prominent. The pulmonary vasculature is normal. Opacifications through the right lower lung field. No pneumothorax is evident. Worsening left lower l obe infiltrate is present. IMPRESSION: 1. Increased opacification through the right lower lung field. 2. Chest tube appears stable in position. 3. Worsening left lower lobe infiltrate.
[2022-12-20] MEDS: METOPROLOL TARTRATE 5 MG/5 ML VIAL IVP SCH (21:59)
--- NOTE | 2022-12-20 23:22 | HP ---
HISTORY AND PHYSICAL CHIEF COMPLAINT: Shortness of breath. HISTORY OF PRESENT ILLNESS: This is another admission for this 82-year-old white male from [facility]. He has a previous history of severe COPD, alcoholism, and CVA. He was brought in from the [facility] and was found to have pneumonitis as well as a right-sided pneumothorax. Review of systems not reliably obtained. He is awake and alert, but slow and not appropriate in his answers. Past medical history, family history, and personal and social histories from the [facility]. In the emergency room, [place] [address] and a blood sugar of 210. PHYSICAL EXAMINATION: VITAL SIGNS: Blood pressure is 102/62 with a pulse of 85. GENERAL: He appeared to be marginally nourished. HEAD, EARS, EYES, NOSE, MOUTH AND THROAT: Unremarkable. CHEST: Demonstrated very poor breath sounds, particularly on the right. CARDIAC: Demonstrates sinus tachycardia. ABDOMEN: Soft without masses. EXTREMITIES: Normal. IMPRESSION: 1. Bronchial pneumonia. 2. Chronic obstructive pulmonary disease. 3. Right-sided pneumothorax. 4. Old cerebrovascular accident. 5. History of chronic alcoholism. PLAN: 1. Bed rest. 2. IV fluids. 3. Consult with Pulmonology for pulmonary management and chest tube. MMODL / IJN: [id number] /
[2022-12-20 23:51] LABS: Glucose,Whole Blood 197 mg/dL (70-110)
[2022-12-21 02:29] LABS: HCT 35.8 % (39.0-53.0); HGB 11.7 gm/dL (13.0-17.5); Hypochromasia Slight; MCH 30.7 pg (25.0-35.0); MCHC 32.7 g/dL (31.0-37.0); MCV 93.9 fL (80.0-100.0); Mean Platelet Volume 10.6; Platelet Count 144 k/uL (150-450); RBC 3.82 m/uL (4.30-5.90); RDW 13.9 % (11.5-15.5)
[2022-12-21] MEDS: METOPROLOL TARTRATE 5 MG/5 ML VIAL IVP SCH ×4 (02:50→15:28)
--- NOTE | 2022-12-21 04:31 | XR ---
EXAM: XR Chest, 1 View CLINICAL HISTORY: ITS.REASON XR Reason: Chest tube placement TECHNIQUE: Frontal view of the chest. COMPARISON: 12/20/2022 FINDINGS: Lungs: Apparent slight retraction of the chest is presumed artifact from obliquity. Opacification of the right mid to lower lung zone remains with similar subsegmental changes at the left lung base. Postoperative changes with suture material noted in the right upper lung zone. Pleural space: The right costophrenic margin remains obscured. The left costophrenic margin is excluded from the [id number] limiting evaluation. No pneumothorax. Heart: The cardiac silhouette is thought to be stable. Mediastinum: No appreciable alteration, accounting for obliquity. No tracheal deviation. Bones/joints: Unremarkable. IMPRESSION: No appreciable alteration from the previous examination with persistent opacification of the right mid to lower lung zone with a right chest tube in position.
[2022-12-21 05:46] LABS: Glucose,Whole Blood 121 mg/dL (70-110)
[2022-12-21 06:13] LABS: Basophils % (A) 0 %; Eosinophils % (A) 0 %; HCT 37.4 % (39.0-53.0); HGB 11.6 gm/dL (13.0-17.5); Hypochromasia Marked; Lymphocytes # (A) 0.7 k/uL (1.0-4.8); Lymphocytes % (A) 4 %; MCV 96.6 fL (80.0-100.0); Mean Platelet Volume 9.5; Monocytes # (A) 0.8 k/uL (0-1.0); Monocytes % (A) 5 %; Neutrophils # (A) 15.8 k/uL (1.3-7.7); Neutrophils % (A) 91 %; Platelet Count 216 k/uL (150-450); RBC 3.87 m/uL (4.30-5.90); RDW 13.9 % (11.5-15.5); WBC 17.4 k/uL (3.8-10.6)
[2022-12-21 06:23] LABS: African American GFR (CKD) >90 (>60 ml/min/1.73 sqM); Anion Gap 8 mmol/L; Blood Urea Nitrogen 27 mg/dL (9-20); Calcium 8.3 mg/dL (8.4-10.2); Carbon Dioxide 26 mmol/L (22-30); Chloride 112 mmol/L (98-107); Glucose 126 mg/dL (74-99); Non-African American GFR(CKD) >90 (>60 ml/min/1.73 sqM); Potassium 4.1 mmol/L (3.5-5.1); Sodium 146 mmol/L (137-145)
[2022-12-21] MEDS: HEPARIN SOD,PORK IN 0.45% NACL 25,000 UNIT in 0.45% NACL 1 250ML.BAG IV SCH (06:45)
[2022-12-21] MEDS: PIPERACILLIN-TAZOBACTAM 3.375 GM in SODIUM CHLORIDE 0.9% 100 ML IVPB SCH ×2 (07:45→15:28)
[2022-12-21] MEDS: PANTOPRAZOLE 40 MG/10 ML VIAL IVP SCH (07:46)
--- NOTE | 2022-12-21 11:07 | P.PN ---
Subjective Progress Note Date: 12/21/22 This is an 82-year-old white male with history of COPD, hypertension, patient is a [facility] resident, sent to the ER today because of oxygenation went down to the 30s according to nursing staff. The patient himself is known to have dementia, could not get much information from the patient. Patient was placed on oxygen and sent to the ER. Upon arrival the patient was not doing well, he was placed on BiPAP. Initial chest x-ray showed no evidence of pneumothorax and it did show evidence of right lower lobe pneumonia. However his CT of the chest was done clearly showed evidence of right-sided pneumothorax, pneumomediastinum, subcutaneous emphysema extending to the anterior chest wall and to the neck area. Follow-up chest x-ray showed the same hence I was notified about this patient and I recommended immediate chest tube placement and this was done by the ER physician. Follow-up chest x-ray showed persistent pneumothorax in the right lower lobe area/with right lower lobe atelectasis and consolidation. Chest she was noted to be in the proper position and there was continuous air leak noted in the Pleur-evac which was applied to wall suction patient is now on a nonrebreather mask, follow-up ABG post tube insertion showed a pO2 of 87 pCO2 64 pH of 7.24 hence I recommended placing the patient back on BiPAP 12/6/100% FiO2. And I have recommended admitting the patient to the ICU. Again the patient is a very poor historian, and not much information could be obtained from the patient himself. Apparently the ER physician was trying to get hold of his legal guardian to address CODE STATUS, and he could not get hold of the legal guardian the meantime the patient remains full code. Other labs on this patient showed leukocytosis with the risk of 20.1 hemoglobin 15.5. D-dimer is a bit elevated and again the CT of the chest did show evidence of pulmonary embolism. Hence I will recommend anticoagulation therapy for this patient. Patient is already on heparin and he is on bronchodilators is also on Rocephin, however considering his clinical history, and mental status I would be more concerned about aspiration pneumonia and I will go ahead and transition his Zithromax and Rocephin to Zosyn. The patient is seen today 12/20/2022 in follow-up in the intensive care unit. He is currently sitting up in bed. Awake and alert in no acute distress. He is maintaining O2 saturations in the 90s on 2 L nasal cannula. He had worn the BiPAP 12/6 and 35% FiO2 throughout the night. Follow-up chest x-ray reveals an approximate 5-10% right-sided pneumothorax with an adjacent air area of pleural thickening or fluid. Interval development of Pam Jessica consolidation in the right upper lobe. Small amount of pneumomediastinum. Chest tube remains in place. No leak noted. White count 26. Hemoglobin 13.0. Platelets 188. Sodium 145. Potassium 4.3. Bicarb 28. BUN 22. Creatinine 0.78. Glucose 192. He is continued on a heparin drip. Normal saline at KVO. Antibiotics in the form of Zosyn and azithromycin. The patient is seen today 12/21/2022 in follow-up in the intensive care unit. He is currently resting comfortably in bed. Awake and alert in no acute distr ess. He is still requiring BiPAP 12/6 and 60% FiO2 to maintain O2 saturations in the 90s. He desaturates into the 70s on nasal cannula for brief trials. Chest x-ray showing some improvement. His x-ray continues to show persistent opacification the right mid to lower lungs on. Right-sided chest tube in place. Continued with Pleur-evac to low continuous wall suction. No leak. Count 17.4. Hemoglobin 11.6. Platelets 216. Sodium 146. Potassium 4.1. Bicarb 26. BUN 27. Creatinine 0.67. Glucose 121. He is continued on Zosyn and azithromycin. He remains on a heparin drip. He remains on normal saline at KVO. Objective - Vital Signs Vital signs: Vital Signs Temp 98.9 F 12/21/22 07:30 Pulse 87 12/21/22 10:00 Resp 30 H 12/21/22 10:00 BP 89/66 12/21/22 10:00 Pulse Ox 97 12/21/22 10:00 FiO2 60 12/21/22 08:46 Intake & Output 12/20/22 12/21/22 12/21/22 18:59 06:59 18:59 Intake Total 1317.227 436.456 140 Output Total 310 500 125 Balance 1007.227 -63.544 15 Weight 81.1 kg 83.7 kg Intake: IV 10 220 140 0.9% KVO 120 40 Piperacillin-Tazobactam 3 100 100 .375 gm In Sodium Chloride 0.9% 100 ml @ 25 mls/hr IVPB Q8HR [facility] Rx# :[id number] Sodium Chloride 0.9% 500 10 ml 500 ml @ 999 mls/hr IV .Q31M [facility] Rx#:[id number] Intake, IV Titration 1307.227 216.456 Amount Heparin Sod,Pork in 0.45% 97.227 206.456 NaCl 25,000 unit In 0.45 % NaCl 1 250ml.bag @ 18 UNITS/KG/HR 13.064 mls/hr IV .Q19H9M [facility] Rx#: [id number] Piperacillin-Tazobactam 3 100 .375 gm In Sodium Chloride 0.9% 100 ml @ 25 mls/hr IVPB Q8HR [facility] Rx# :[id number] Sodium Chloride 0.9% 1, 1000 000 ml @ 999 mls/hr IV . Q1H1M [facility] Rx#:[id number] Sodium Chloride 0.9% 500 110 10 ml 500 ml @ 999 mls/hr IV .Q31M [facility] Rx#:[id number] Output: Chest Tube Drainage 50 Chest Tube Right 50 Urine 310 450 125 Other: Voiding Method Indwelling Catheter Indwelling Catheter Indwelling Catheter - Exam GENERAL EXAM: Alert, disheveled 82-year-old male patient, on BiPAP 12/6 and 60% FiO2, fairly comfortable in no apparent distress. HEAD: Normocephalic. EYES: Normal reaction of pupils, equal size. NOSE: Clear with pink turbinates. THROAT: No erythema or exudates. NECK: No masses, no JVD. CHEST: No chest wall deformity. Right-sided chest tube to Pleur-evac and low continuous suction. No air leak noted. LUNGS: Equal air entry with crackles, few scattered rhonchi in the right lung. Diminished left lung base. CVS: S1 and S2 normal with no audible murmur, regular rhythm. ABDOMEN: No hepatosplenomegaly, normal bowel sounds, no guarding or rigidity. SPINE: No scoliosis or deformity SKIN: No rashes CENTRAL NERVOUS SYSTEM: No focal deficits, tone is normal in all 4 extremities. EXTREMITIES: There is no peripheral edema. No clubbing, no cyanosis. P eripheral pulses are intact. - Labs CBC & Chem 7: 12/21/22 05:51 12/21/22 05:51 Labs: Abnormal Lab Results - Last 24 Hours (Table) 12/20/22 12/20/22 12/20/22 Range/Units 11:15 11:36 11:36 WBC (3.8-10.6) k/uL RBC (4.30-5.90) m/uL Hgb (13.0-17.5) gm/dL Hct (39.0-53.0) % Plt Count (150-450) k/uL Neutrophils # (1.3-7.7) k/uL Lymphocytes # (1.0-4.8) k/uL APTT 58.6 H (22.0-30.0) sec Sodium (137-145) mmol/L Chloride (98-107) mmol/L BUN (9-20) mg/dL Glucose (74-99) mg/dL POC Glucose (mg/dL) 150 H (70-110) mg/dL Calcium (8.4-10.2) mg/dL Procalcitonin 0.35 H (0.02-0.09) ng/mL 12/20/22 12/20/22 12/21/22 Range/Units 17:48 23:50 02:12 WBC 20.0 H (3.8-10.6) k/uL RBC 3.82 L (4.30-5.90) m/uL Hgb 11.7 L (13.0-17.5) gm/dL Hct 35.8 L (39.0-53.0) % Plt Count 144 L (150-450) k/uL Neutrophils # (1.3-7.7) k/uL Lymphocytes # (1.0-4.8) k/uL APTT (22.0-30.0) sec Sodium (137-145) mmol/L Chloride (98-107) mmol/L BUN (9-20) mg/dL Glucose (74-99) mg/dL POC Glucose (mg/dL) 117 H 197 H (70-110) mg/dL Calcium (8.4-10.2) mg/dL Procalcitonin (0.02-0.09) ng/mL 12/21/22 12/21/22 12/21/22 Range/Units 05:45 05:51 05:51 WBC 17.4 H (3.8-10.6) k/uL RBC 3.87 L (4.30-5.90) m/uL Hgb 11.6 L (13.0-17.5) gm/dL Hct 37.4 L (39.0-53.0) % Plt Count (150-450) k/uL Neutrophils # 15.8 H (1.3-7.7) k/uL Lymphocytes # 0.7 L (1.0-4.8) k/uL APTT (22.0-30.0) sec Sodium 146 H (137-145) mmol/L Chloride 112 H (98-107) mmol/L BUN 27 H (9-20) mg/dL Glucose 126 H (74-99) mg/dL POC Glucose (mg/dL) 121 H (70-110) mg/dL Calcium 8.3 L (8.4-10.2) mg/dL Procalcitonin (0.02-0.09) ng/mL 12/21/22 Range/Units 05:51 WBC (3.8-10.6) k/uL RBC (4.30-5.90) m/uL Hgb (13.0-17.5) gm/dL Hct (39.0-53.0) % Plt Count (150-450) k/uL Neutrophils # (1.3-7.7) k/uL Lymphocytes # (1.0-4.8) k/uL APTT 50.5 H (22.0-30.0) sec Sodium (137-145) mmol/L Chloride (98-107) mmol/L BUN (9-20) mg/dL Glucose (74-99) mg/dL POC Glucose (mg/dL) (70-110) mg/dL Calcium (8.4-10.2) mg/dL Procalcitonin (0.02-0.09) ng/mL Microbiology - Last 24 Hours (Table) 12/19/22 18:00 Urine Culture - Final Urine,Voided 12/19/22 07:54 Blood Culture - Preliminary Blood Assessment and Plan Assessment: Acute hypoxic and hypercapnic respiratory failure, multifactorial: Acute right lower lobe pneumonia, strongly suspect aspiration pneumonia Acute pulmonary embolism with abnormal d-dimer and abnormal CT of the chest Acute exacerbation of COPD Acute spontaneous right-sided pneumothorax and pneumomediastinum History of underlying dementia Benign essential hypertension Dyslipidemia Paroxysmal atrial fibrillation Plan: The patient was seen and evaluated Chest x-ray, labs and medications reviewed Plan to remove chest tube today Chest x-ray 1 hour later Remains on BiPAP 12/6 on 60% FiO2 We'll trial on AirVo high flow oxygen Remains on a heparin drip Continued on Zosyn, discontinue azithromycin Procalcitonin 0.35 Prognosis is guarded Code status to be addressed We will continue to follow I have personally seen and examined the patient, performed the documentation and the assessment and plan as written. Number of minutes spent on the visit: 10.
[2022-12-21 11:20] LABS: Glucose,Whole Blood 121 mg/dL (70-110)
--- NOTE | 2022-12-21 11:44 | XR ---
EXAMINATION TYPE: XR chest 1V portable DATE OF EXAM: 12/21/2022 COMPARISON: 12/21/2022 HISTORY: Chest tube removal TECHNIQUE: Single frontal view of the chest is obtained. FINDINGS: No sizable pneumothorax. Apical pleural thickening with bilateral consolidation and right- sided pleural effusion. Cardiomediastinal silhouette is prominent in size and stable. Diffuse osteope alex and arthropathy of the shoulders. Degenerative changes of the spine. IMPRESSION: Stable pleural parenchymal changes. No sizable pneumothorax.
[2022-12-21 16:45] VITALS: BP 132/62; PULSE 115; RESP 37; TEMP 97.9
[2022-12-21] MEDS ORDERED: LORazepam 2 MG/ML INJ IV PRN (17:27)
[2022-12-21] MEDS ORDERED: MORPHINE SULFATE 4 MG/ML SYRINGE IV PRN (17:27)
--- NOTE | 2022-12-22 13:25 | PN ---
PROGRESS NOTE DATE OF SERVICE: 12/20/2022 CHIEF COMPLAINT: 1. Pneumonitis. 2. Chronic obstructive pulmonary disease. 3. Pneumothorax. HISTORY OF PRESENT ILLNESS: This gentleman is fairly stable. Chest tubes in place. PHYSICAL EXAMINATION: GENERAL: He is awake. LUNGS: Breath sounds are poor on both sides of the chest. CARDIAC: Normal. ABDOMEN: Soft, nontender. IMPRESSION: 1. Pneumonitis. 2. Chronic obstructive pulmonary disease. 3. Pneumothorax. 4. Previous cerebrovascular accident. PLAN: Continue with supportive care in the intensive care unit. Chest tube maybe being removed today. MMODL / IJN: [id number] /
--- NOTE | 2022-12-22 14:46 | PN ---
PROGRESS NOTE DATE OF SERVICE: 12/21/2022 CHIEF COMPLAINT: Pneumonitis, pneumothorax, COPD. HISTORY OF PRESENT ILLNESS: This gentleman seemed to be doing fairly well, but he slowly started to deteriorate and becoming less alert. PHYSICAL EXAMINATION: LUNGS: Breath sounds are shallow. CARDIAC: Normal. ABDOMEN: Soft with no masses. IMPRESSION: 1. Bronchial pneumonia. 2. Pneumothorax. 3. Chronic obstructive pulmonary disease. 4. History of alcoholism. PLAN: Family history apparently asked for DNR status and this will be done. MMODL / IJN: [id number] /
--- NOTE | 2022-12-23 13:16 | CDI ---
Documentation Clarification Form Date: 12/23/2022 12:30:45 PM From: Daya Turner RN, CCDS Email: [email or web address] Admit Date: 12/19/2022 02:53:00 PM Patient Name: Michel Mccurdy Visit Number: [id number] Discharge Date: 12/21/2022 06:33:00 PM ATTENTION: The Clinical Documentation Specialists (CDI) and [facility] Coding Staff appreciate your assistance in clarifying documentation. Please respond to the clarification below the line at the bottom and electronically sign. The CDI & [facility] Coding staff will review the response and follow-up if needed. Please note: Queries are made part of the Legal Health Record. If you have any questions, please contact the author of this message via ITS. Dr. Aidan Betancourt The patient had suspected aspiration pneumonia, elevated white count, fever, tachycardia and was tachypneic. Based on this information and the findings below, is there an additional diagnosis that is clinically appropriate for this patient? History/Risk Factors: COPD, HTN, A fib and HLD. Presented from [facility] with SOB, weakness and low O2 sat. Admitted with acute hypoxic respiratory failure, suspected aspiration pneumonia, pneumothorax and PE. Clinical Indicators: 12/19 Pulmonary Consult: "considering his clinical history, and mental status I would be more concerned about aspiration pneumonia and I will go ahead and transition his Zithromax and Rocephin to Zosyn." 12/31 Pulmonary: "Acute right lower lobe pneumonia, strongly suspect aspiration pneumonia." 12/19-12/21 WBC: 20.1-25.8-20.0-17.4 12/20 Procalcitonin: 0.35 12/19 CXR: Opacities in the right mid to lower lung, likely pneumonia 12/19 Chest CTA: compatible with emboli, medial inferior right lung pneumothorax. There is associated subcutaneous emphysema in the neck and pneumomediastinum/pneumopericardium. Right lower lung consolidation and bronchial vascular crowding likely secondary to bullous emphysema changes and mucous plugging and atelectasis. Superimposed infection not entirely excluded. 12/19 Vitals signs: Temp 100.5, HR 138, RR 41, BP 88/56, pox 77% Treatment: CT insertion, Bipap Antibiotics: IV Zosyn 3.375gm Q8H 12/19-12/21; IV Rocephin 1000mg IVP x1 on 12/19; IV Azithromycin 500mg x1 on 12/19 IV Bolus: 1L 0.9 NS bolus x2 on 12/19; 1L 0.9 NS bolus x1 on 12/20 Is there an additional diagnosis that is clinically appropriate for this patient? [ ] Sepsis, present on admission [ ] No additional diagnosis [ ] Other, please specify [ x ] Unable to determine SIRS Criteria: 2 or more of the following may indicate SIRS Temperature < 96.8F (36C) or > 101.0F (38.3C) Heart Rate > 90 bpm Respiratory Rate > 20 breaths/min or PaCO2 < 32 mmHg White Blood Cell Count > 12,000 or < 4,000 cells/mm3 or > 10% bands MTDD
--- NOTE | 2023-01-04 12:04 | CDI ---
Documentation Clarification Form Date: 12/23/2022 12:30:00 PM From: Daya Turner RN, CCDS Email: [email or web address] Admit Date: 12/19/2022 02:53:00 PM Patient Name: Michel Mccurdy Visit Number: [id number] Discharge Date: 12/21/2022 06:33:00 PM ATTENTION: The Clinical Documentation Specialists (CDI) and [facility] Coding Staff appreciate your assistance in clarifying documentation. Please respond to the clarification below the line at the bottom and electronically sign. The CDI & [facility] Coding staff will review the response and follow-up if needed. Please note: Queries are made part of the Legal Health Record. If you have any questions, please contact the author of this message via ITS. Dr. Aidan Betancourt The patient had suspected aspiration pneumonia, elevated white count, fever, tachycardia and was tachypneic. Based on this information and the findings below, is there an additional diagnosis that is clinically appropriate for this patient? History/Risk Factors: COPD, HTN, A fib and HLD. Presented [facility] with SOB, weakness and low O2 sat. Admitted with acute hypoxic respiratory failure, suspected aspiration pneumonia, pneumothorax and PE. Clinical Indicators: 12/19 Pulmonary Consult: "considering his clinical history, and mental status I would be more concerned about aspiration pneumonia and I will go ahead and transition his Zithromax and Rocephin to Zosyn." 12/31 Pulmonary: "Acute right lower lobe pneumonia, strongly suspect aspiration pneumonia." 12/19-12/21 WBC: 20.1-25.8-20.0-17.4 12/20 Procalcitonin: 0.35 12/19 CXR: Opacities in the right mid to lower lung, likely pneumonia 12/19 Chest CTA: compatible with emboli, medial inferior right lung pneumothorax. There is associated subcutaneous emphysema in the neck and pneumomediastinum/pneumopericardium. Right lower lung consolidation and bronchial vascular crowding likely secondary to bullous emphysema changes and mucous plugging and atelectasis. Superimposed infection not entirely excluded. 12/19 Vital signs: Temp 100.5, HR 138, RR 41, BP 88/56, pox 77% Treatment: CT insertion, Bipap Antibiotics: IV Zosyn 3.375gm Q8H 12/19-12/21; IV Rocephin 1000mg IVP x1 on 12/19; IV Azithromycin 500mg x1 on 12/19 IV Bolus: 1L 0.9 NS bolus x2 on 12/19; 1L 0.9 NS bolus x1 on 12/20 Is there an additional diagnosis that is clinically appropriate for this patient? [ ] Sepsis, present on admission [ ] No additional diagnosis [ x ] Other, please specify ____Please speak to Dr. Arevalo about this. Thanks. [ ] Unable to determine SIRS Criteria: 2 or more of the following may indicate SIRS Temperature < 96.8F (36C) or > 101.0F (38.3C) Heart Rate > 90 bpm Respiratory Rate > 20 breaths/min or PaCO2 < 32 mmHg White Blood Cell Count > 12,000 or < 4,000 cells/mm3 or > 10% bands MTDD
--- NOTE | 2023-01-09 19:31 | DS ---
DISCHARGE SUMMARY DATE OF : December 21. CHIEF COMPLAINT: Pneumonitis. HISTORY OF PRESENT ILLNESS AND PHYSICAL EXAMINATION: Details of this man's history and physical can be found in the initial workup. LABORATORY STUDIES: While he was in the hospital, he had laboratory studies, details of which can be found in the laboratory section of his chart. COURSE IN THE HOSPITAL: The patient was placed on bedrest in the intensive care unit and started on antibiotics and updrafts. He continued to improve, but then became more dyspneic and less responsive. He was do not resuscitate and on the . FINAL DIAGNOSES: 1. Bronchopneumonia. 2. Chronic obstructive pulmonary disease. 3. Previous cerebrovascular accident. 4. History of alcoholism. OPERATIONS: None. CONSULTATIONS: Intensive Medicine and Pulmonology. CONDITION: He . MMODL / IJN: [id number] /
== END 2022-12-21 18:33 | disposition expired | DRG 177 ==
LOC: EEVIPCON 07:11 → EC 07:11 → 2SICU 14:53
PROVIDERS: ADMIT Family Medicine; ATTEND Family Medicine
PROC: 5A09357 Assistance with Respiratory Ventilation, Less than 24 Consecutive Hours, Continuous Positive Airway Pressure (ICD-10-PCS; 2022-12-19)
PROC: 0W9930Z Drainage of Right Pleural Cavity with Drainage Device, Percutaneous Approach (ICD-10-PCS; principal; 2022-12-20)
DX: J69.0 Pneumonitis due to inhalation of food and vomit (principal); I26.99 Other pulmonary embolism without acute cor pulmonale; J96.01 Acute respiratory failure with hypoxia; J96.02 Acute respiratory failure with hypercapnia; J44.0 Chronic obstructive pulmonary disease with (acute) lower respiratory infection; J44.1 Chronic obstructive pulmonary disease with (acute) exacerbation; J93.83 Other pneumothorax; J98.11 Atelectasis; J93.82 Other air leak; Z66 Do not resuscitate; Z51.5 Encounter for palliative care; E78.5 Hyperlipidemia, unspecified; I12.9 Hypertensive chronic kidney disease with stage 1 through stage 4 chronic kidney disease, or unspecified chronic kidney disease; I48.0 Paroxysmal atrial fibrillation; F10.21 Alcohol dependence, in remission; N18.9 Chronic kidney disease, unspecified; F03.90 Unspecified dementia, unspecified severity, without behavioral disturbance, psychotic disturbance, mood disturbance, and anxiety; J98.2 Interstitial emphysema; Z20.822 Contact with and (suspected) exposure to COVID-19; R79.1 Abnormal coagulation profile; Z71.3 Dietary counseling and surveillance; Z86.73 Personal history of transient ischemic attack (TIA), and cerebral infarction without residual deficits
CPT/HCPCS: 36415; 36600; 71045; 71275; 80048; 80053; 81001; 82803; 82805; 83605; 83735; 83880; 84145; 84484; 85025; 85027; 85379; 85610; 85730; 87040; 87086; 87636; 93005; 94640; 94660; 96361; 96365; 96366; 96367; 96368; 96375; 99291